=== PATIENT | female | born 1995 | race Caucasian/White ===

== ENCOUNTER 2019-10-08 18:59 | Emergency (ER) | payer OTHER ==
[~2019-10-08] VITALS: Ht 154.9 cm; Wt 50.0 kg
[2019-10-08 19:07] VITALS: BP 138/89; TEMP 99.2
[2019-10-08] MEDS ORDERED: FLEXERIL 1010 MG/TAB PO (20:13)
[2019-10-08 20:19] VITALS: PULSE 98
== END 2019-10-08 20:19 | disposition home or self-care (01) ==
LOC: COL.ER 18:59
DX: S39.92XA Unspecified injury of lower back, initial encounter (principal); M62.830 Muscle spasm of back; M54.5 Low back pain; V43.52XA Car driver injured in collision with other type car in traffic accident, initial encounter
CPT/HCPCS: J1885

== ENCOUNTER 2022-05-28 16:18 | Inpatient (IN) | payer OTHER ==
[~2022-05-28] VITALS: Ht 152.4 cm; Wt 70.0 kg
[~2022-05-28 16:18] MED LIST: FLEXERIL 1010 MG/TAB PO
[2022-06-02] VITALS (48 sets, daily range): BP systolic 102–167; BP diastolic 55–88; PULSE 74–123; TEMP 97.9–100.1
--- NOTE | 2022-06-02 06:45 | NUR ---
PT AMBULATORY WITH SPOUSE TO LR5. PT CHANGED INTO CLEAN GOWN. FHR MONITOR/TOCO APPLIED. PT DENIES VAGINAL BLEEDING, LEAKING OF FLUID, DECREASED MOVEMENT, OR REGULAR CONTRACTIONS. PLAN OF CARE AND INDUCTION OF LABOR DISCUSSED WITH PT. PT VERBALIZES UNDERSTANDING. PT ORIENTED TO ROOM. CALL LIGHT WITHIN REACH
[2022-06-02] MEDS ORDERED: PRENATAL TABLET PO (07:00)
[2022-06-02 08:01] LABS: BASO % 0.4 % (0.0-2.0); EOS # 0.1 K/mm3 (0.0-0.7); EOS % 1.1 % (0.0-4.0); GRAN # 5.4 K/mm3 (1.4-6.5); GRAN % 68.2 % (42.2-75.2); HEMOGLOBIN 11.5 g/dl (12.5-16.0); LYMPH # 1.7 K/mm3 (1.2-3.4); LYMPH % 20.9 % (20.0-51.0); MEAN CELL VOLUME 86 fl (80.0-100.0); MEAN CORPUSCULAR HEMOGLOBIN 28 pg (27-31); MEAN CORPUSCULAR HGB CONC 33 g/dl (33.0-37.0); MONO # 0.7 K/mm3 (0.1-0.6); MONO % 8.9 % (1.7-9.3); PLATELET COUNT 214 K/mm3 (130-400); RED BLOOD COUNT 4.12 M/mm3 (4.10-5.30); REDCELL DISTRIBUTION WIDTH-CV 13.1 % (11.5-14.5)
[2022-06-02 08:07] LABS: HEMATOCRIT 35.4 % (37.0-47.0)
--- NOTE | 2022-06-02 09:27 | NUR ---
PT ON WIRELESS FHR/TOCO MONITOR.
--- NOTE | 2022-06-02 10:40 | NUR ---
1015 DR YEPEZ ON UNIT. UPDATING DR YEPEZ ON PT. 1023 DR YEPEZ AT PT'S BEDSIDE. SVE AT THIS TIME /-2. AROM. DR YEPEZ DISCUSSES PLAN OF CARE. PT VERBALIZES UNDERSTANDING.
--- NOTE | 2022-06-02 11:45 | NUR ---
PT BACK ON LABOR ROOM FHR/TOCO MONITOR.
--- NOTE | 2022-06-02 12:20 | NUR ---
1206 THIS RN AT PT'S BEDSIDE 1210 PT WEDGED LEFT. 1212 FHR RECOVERING. 1213 SVE /-2. 1215 THIS RN LEAVING PT'S BEDSIDE. WILL CONTINUE TO MONITOR FHR AT LABOR DESK.
--- NOTE | 2022-06-02 13:10 | NUR ---
1250 DR YEPEZ AT BEDSIDE. SVE AT THIS TIME . DR YEPEZ DISCUSSING PLAN OF CARE. PT VERBALIZES UNDERSTANDING.
--- NOTE | 2022-06-02 14:05 | NUR ---
[id number] MINIMAL VARIABILITY NOTED 1315 PT IN RIGHT LATERAL POSITION 1325 PT IN LEFT LATERAL POSITION WITH PEANUT BALL. 1325 PT EATING POPSICLE 1335 LR BOLUS INFUSING. 1352 PT IN THRONE/VALE POSITION.
--- NOTE | 2022-06-02 15:20 | NUR ---
1517 DR YEPEZ SVE /+1. ANTERIOR CERVICAL LIP. DR YEPEZ TELLS THIS RN TO DO SVE IN 45-[address] YEPEZ DISCUSSES PLAN OF CARE WITH PT. PT VERBALIZES UNDERSTANDING.
--- NOTE | 2022-06-02 16:20 | NUR ---
1619- REPORT RCVD FROM DANELLE GARCIA. PT IS PUSHING AT THIS TIME. 1912- NOTIFIED AND REQUESTED TO EVALUATE PATIENT'S PUSHING STATUS. 1926- AT BEDSIDE AND NOTIFIED OF MATERNAL TEMP. PROVIDER REVIEWS STRIP. PT BEGINS PUSHING WITH PROVIDER. 1940- REQUESTS PIT TURNED UP TO 22MU. PROVIDER CONTINUES PUSHING WITH PATIENT. 2001- PT REPOSITIONED INTO FOOTPLATES AND PREPPED FOR DELIVERY. STRAIGHT CATHED PER , 50ML VOID AT THIS TIME. PROVIDER CONTINUES PUSHING WITH PATIENT. 2009- PROVIDER EDUCATED PATIENT REGARDING VACUUM DELIVERY. QUESTIONS ANSWERED, PT AGREEABLE AT THIS TIME FOR VACUUM ASSISTED DELIVERY. 2011- VACUUM PLACED BY . 2013- PT CONTINUES PUSHING WITH CONTRACTIONS. INCREASES PRESSURE TO VACUUM TO GREEN AND APPLIES TRACTION. 2015- VACUUM ASSISTED DELIVERY OF INFANTS HEAD, VACUUM REMOVED BY . DIFFICULTY DELIVERING SHOULDERS NOTED BY PROVIDER. PROVIDER REQUEST MARISSA TO PERFORM SUPRAPUBIC PRESSURE. SUPRAPUBIC PRESSURE APPLIED AND BRITTA PERFORMED. 2016- DELIVERY OF VIABLE MALE BY . INFANT TO MOTHER'S CHEST, CORD CLAMPEDX2 AND CUT IMMEDIATELY. RADIANT WARMER AND CARE ASSUMED BY DANELLE MATTHEWS. PITOCIN STOPPED PER PROTOCOL. 2024- SPONTANEOUS DELIVERY OF INTACT PLACENTA BY . PITOCIN RESUMED PER PROTOCOL. 4TH DEGREE LACERATION REPAIRED BY . PERICARE PROVIDED, PADS CHANGED AND ICEPACK APPLIED. PLAN OF CARE AND SAFETY PRECAUTIONS REVIEWED, CALL LIGHT WITHIN REACH.
[2022-06-03] VITALS: BP 118/70; PULSE 110
--- NOTE | 2022-06-03 | NUR ---
PT SITTING UP AT BEDSIDE. EPIDURAL CATHETER REMOVED AT THIS TIME. PT TRANSITIONS TO [place] AND WHEELED TO THE BATHROOM. PT UNABLE TO VOID AT THIS TIME. PERICARE PROVIDED AND PATIENT TRANSFERRED TO POST ROOM. PATIENT DID FEEL DIZZY AND NAUSEATED. PALE FACE NOTED. GIVEN SOME ICE CHIPS AND ASSISTED TO BED. CALL LIGHT PLACED WITHIN REACH.
--- NOTE | 2022-06-03 03:50 | NUR ---
PT UNABLE TO VOID FOR 7 HOURS. STRAIGHT CATHED AT THIS TIME, VOID PER CATH 800ML. WILL REASSESS AND ENCOURAGE ATTEMPTS EVERY 2-3 HOURS. ENCOURAGED TO DRINK FLUIDS.
[2022-06-03 04:00] VITALS: BP 107/61; PULSE 97; TEMP 98
[2022-06-03 08:23] VITALS: BP 119/60; PULSE 75; TEMP 97.3
--- NOTE | 2022-06-03 09:00 | NUR ---
PT IN BATHROOM, ABLE TO VOID A LITTLE (60 ML), ASKS TO KEEP TRYING. PROVIDER NOTIFIED, OK WITH EXTENDING VOID TRIAL BY ANOTHER HOUR BEFORE PLACING ASCENCIO CATHETER.
--- NOTE | 2022-06-03 10:24 | NUR ---
Initial visit; Parents thanked for offering congratulations and a "Special [place]" for their son. thanked family for having [facility] "Bless" their son and thanked them for choosing [facility].
[2022-06-03 16:01] VITALS: BP 111/64; PULSE 75; TEMP 97.6
[2022-06-03 20:00] VITALS: BP 110/60; PULSE 71; TEMP 97.9
[2022-06-04 08:15] VITALS: BP 114/69; PULSE 84; TEMP 97.8
[2022-06-04] MEDS ORDERED: ROXICODONE 55 MG/TAB PO (09:07)
[2022-06-04] MEDS ORDERED: IBU800 M1 PO (09:07)
--- NOTE | 2022-06-04 11:30 | NUR ---
This nurse received report from Lydia Encarnacion RN. Pt pushed for 4 hours and has a fourth degree tear, pt has ice packs and tucks, will need Tylenol at 1145, educational videos are done, and needs help with . This nurse assumes care from Lydia Encarnacion RN.
--- NOTE | 2022-06-04 11:35 | NUR ---
REPORT GIVEN TO ROBERTO Ramirez RN WHO ASSUMES CARE OF PATIENT AT THIS TIME.
== END 2022-06-04 16:35 | disposition home or self-care (01) | DRG 768 ==
LOC: LDR 06-02 06:30 → OB 06-02 06:30
PROVIDERS: ADMIT Student in an Organized Health Care Education/Training Program
PROC: 10D07Z6 Extraction of Products of Conception, Vacuum, Via Natural or Artificial Opening (ICD-10-PCS; principal; 2022-06-02)
PROC: 3E033VJ Introduction of Other Hormone into Peripheral Vein, Percutaneous Approach (ICD-10-PCS; 2022-06-02)
PROC: 0DQP0ZZ Repair Rectum, Open Approach (ICD-10-PCS; 2022-06-02)
DX: O66.0 Obstructed labor due to shoulder dystocia (principal); Z37.0 Single live birth; O70.3 Fourth degree perineal laceration during delivery; O75.81 Maternal exhaustion complicating labor and delivery; O76 Abnormality in fetal heart rate and rhythm complicating labor and delivery; R33.9 Retention of urine, unspecified; O99.893 Other specified diseases and conditions complicating puerperium; Z3A.39 39 weeks gestation of pregnancy; Z86.16 Personal history of COVID-19
CPT/HCPCS: J2590; J2795; J7120